=== PATIENT | male | born 1955 | race Caucasian/White ===

== ENCOUNTER 2022-01-30 04:17 | Emergency (ER) | payer OTHER ==
[~2022-01-30] VITALS: Ht 177.8 cm; Wt 113.4 kg
== END 2022-01-30 04:54 | disposition home or self-care (01) ==
LOC: ER 04:17
DX: S61.217A Laceration without foreign body of left little finger without damage to nail, initial encounter (principal); E11.9 Type 2 diabetes mellitus without complications; W27.8XXA Contact with other nonpowered hand tool, initial encounter

== ENCOUNTER 2024-02-11 20:58 | Observation (INO) | payer OTHER ==
[~2024-02-11] VITALS: Ht 177.8 cm; Wt 112.0 kg
[2024-02-11] MEDS ORDERED: Albuterol 2.5 MG/3 ML VIAL INH SCH (21:10)
[2024-02-11] MEDS ORDERED: Ipratropium Bromide INH 0.02% 0.5 mg/2.5ML Vial INH SCH (21:10)
[2024-02-11 21:29] LABS: BASOPHILS ABSOLUTE AUTO 0.04 K/mm3 (0.00-0.23); BASOPHILS PERCENT AUTO 0 % (0-2); EOSINOPHILS ABSOLUTE AUTO 0.04 K/mm3 (0.00-0.68); EOSINOPHILS PERCENT AUTO 0 % (0-6); Hematocrit 45.4 % (37.0-53.0); Hemoglobin 15.5 g/dL (13.5-17.5); IMMATURE GRAN ABSOLUTE AUTO 0.06 K/mm3 (0.00-0.10); IMMATURE GRAN PERCENT AUTO 1 % (0-1); LYMPHOCYTES ABSOLUTE AUTO 0.38 K/mm3 (0.84-5.20); LYMPHOCYTES PERCENT AUTO 3 % (21-46); MONOCYTES PERCENT AUTO 6 % (4-13); Mean Corpuscular HGB 28.2 pg (26.0-34.0); Mean Corpuscular HGB Conc 34.1 g/dL (31.5-36.5); Mean Corpuscular Volume 83 fL (80-100); Mean Platelet Volume 11.3 fL (9.1-12.4); NEUTROPHILS ABSOLUTE AUTO 10.67 K/mm3 (1.96-9.15); NEUTROPHILS PERCENT AUTO 90 % (41-73); Platelet Count 226 K/mm3 (150-400); RDW Coefficient Variation 12.3 % (11.7-14.2); RDW Standard Deviation 37.4 fL (35.1-46.3); White Blood Cell Count 11.89 K/mm3 (4.00-11.30)
[2024-02-11] MEDS ORDERED: Ketorolac Tromethamine 15mg Vial IV ONE (22:00)
[2024-02-11 22:02] LABS: Albumin, Blood 3.3 g/dL (3.4-5.0); Albumin/Globulin Ratio 0.8 (0.8-1.8); Bilirubin, Total 0.3 mg/dL (0.1-1.0); Bun/Creatinine Ratio 16.7 (12.0-20.0); Calcium, Blood 8.8 mg/dL (8.5-10.1); Creatinine, Blood 1.14 mg/dL (0.60-1.20); Phosphorus, Blood 1.6 mg/dL (2.5-4.9); Potassium, Blood 4.1 mmol/L (3.5-5.5); Thyroid Stimulating Hormone 0.834 uIU/mL (0.360-4.800); Total Protein, Blood 7.3 g/dL (6.4-8.2)
[2024-02-11 22:05] LABS: Influenza A, PCR NEGATIVE (NEGATIVE); Influenza B, PCR NEGATIVE (NEGATIVE); Resp Syncytial Virus, PCR NEGATIVE (NEGATIVE)
[2024-02-11 22:06] LABS: SARS-Cov-2 (COVID-19) PCR, MMC POSITIVE (NEGATIVE)
[2024-02-11 22:06] LABS: D-Dimer, Quantitative 0.79 mg/L FEU (0.00-0.52); International Normalized Ratio 1.01; Prothrombin Time Results 10.8 Sec (9.7-11.5)
[2024-02-11] MEDS ORDERED: NS 1,000 ML IV SCH (22:15)
[2024-02-11] MEDS ORDERED: Azithromycin 500 MG in NS 250 ML IV ONE (22:15)
[2024-02-11] MEDS ORDERED: CefTRIAXone Sodium 1,000 MG in NS 50 ML IV ONE (22:15)
[2024-02-11] MEDS ORDERED: Acetaminophen 325 MG TABLET PO PRN (23:45)
[2024-02-11] MEDS ORDERED: Nicotine 14 MG PATCH TOP PRN (23:45)
[2024-02-11] MEDS ORDERED: Remdesivir (EUA) 200 MG in NS 250 ML IV ONE (23:50)
[2024-02-12] MEDS ORDERED: NS 1,000 ML IV SCH ×2 (00:15→01:15)
[2024-02-12] MEDS ORDERED: INSULANI SC (01:00)
[2024-02-12 01:04] LABS: Source, Urine Clean Catch
[2024-02-12 01:06] LABS: Bilirubin, Urine Neg (Neg); Blood, Urine Neg (Neg); Glucose Qualitative, Urine 4+ (Neg); Ketones, Urine Neg (Neg); Leukocyte Esterase, Urine Neg (Neg); Nitrite, Urine Neg (Neg); Protein, Urine 1+ (Neg); Urobilinogen, Urine NORM (Normal)
[2024-02-12 01:10] LABS: BASOPHILS ABSOLUTE AUTO 0.05 K/mm3 (0.00-0.23); BASOPHILS PERCENT AUTO 0 % (0-2); EOSINOPHILS ABSOLUTE AUTO 0.01 K/mm3 (0.00-0.68); EOSINOPHILS PERCENT AUTO 0 % (0-6); Hematocrit 44.4 % (37.0-53.0); Hemoglobin 14.7 g/dL (13.5-17.5); IMMATURE GRAN ABSOLUTE AUTO 0.08 K/mm3 (0.00-0.10); IMMATURE GRAN PERCENT AUTO 1 % (0-1); LYMPHOCYTES ABSOLUTE AUTO 0.71 K/mm3 (0.84-5.20); LYMPHOCYTES PERCENT AUTO 5 % (21-46); MONOCYTES ABSOLUTE AUTO 0.67 K/mm3 (0.16-1.47); MONOCYTES PERCENT AUTO 5 % (4-13); Mean Corpuscular HGB 28.1 pg (26.0-34.0); Mean Corpuscular HGB Conc 33.1 g/dL (31.5-36.5); Mean Corpuscular Volume 85 fL (80-100); Mean Platelet Volume 10.6 fL (9.1-12.4); NEUTROPHILS ABSOLUTE AUTO 12.52 K/mm3 (1.96-9.15); NEUTROPHILS PERCENT AUTO 89 % (41-73); Platelet Count 203 K/mm3 (150-400); RDW Coefficient Variation 12.4 % (11.7-14.2); RDW Standard Deviation 38.1 fL (35.1-46.3); Red Blood Cell Count 5.23 M/mm3 (4.30-5.90); White Blood Cell Count 14.04 K/mm3 (4.00-11.30)
[2024-02-12 01:11] LABS: Appearance, Urine Clear (Clear); Color, Urine Yellow (P-Yellow)
[2024-02-12 01:12] VITALS: BP 124/63
[2024-02-12 01:20] LABS: U Amphetamine Screen DETECTED; U Barbituate Screen Not Detected; U Benzodiazapine Screen DETECTED; U Buprenorphine Screen Not Detected; U Cannabinoids Screen Not Detected; U Cocaine Screen Not Detected; U Methadone Screen Not Detected; U Methamphetamine Screen DETECTED; U Opiates Screen DETECTED; U Oxycodone Screen Not Detected; U Phencyclidine Screen Not Detected
[2024-02-12 01:29] LABS: Albumin, Blood 3.1 g/dL (3.4-5.0); Albumin/Globulin Ratio 0.8 (0.8-1.8); Bilirubin, Total 0.2 mg/dL (0.1-1.0); Calcium, Blood 8.4 mg/dL (8.5-10.1); Creatinine, Blood 1.36 mg/dL (0.60-1.20); Globulin, Blood 3.8 g/dL (2.2-4.0); Potassium, Blood 3.8 mmol/L (3.5-5.5); Total Protein, Blood 6.9 g/dL (6.4-8.2)
[2024-02-12] MEDS ORDERED: Ipratropium/Albuterol SulF 2.5-0.5MG/3 ML Amp INH SCH (01:55)
--- NOTE | 2024-02-12 02:00 | NUR ---
ARRIVAL PT NEW ADMIT FROM ER WITH SEPSIS SECONDARY TO COVID-19. PT ARRIVED VIA GOURNEY, IN NO DISTRESS, AND ON 5L VIA NC. VSS. IVF INFUSING PER EMAR ORDERS. REDDNESS NOTED IN SOME SKIN FOLDS, PICTURES IN CHART. NO OPEN AREAS NOTED. PT A/OX3-4, UNABLE TO RECALL WHAT MEDICATION HE TAKES. [facility]. DIFFUSE WEAKNESS NOTED, CONDOM CATH PLACED. TOLLERAING PO INTAKE W/O N/V. REPORTS CHRONIC L SHOULDER PAIN.
[2024-02-12] MEDS ORDERED: Potassium Phosphate Dibasic 30 MM in Dextrose 5% 500 ML IV ONE (05:00)
[2024-02-12 05:20] VITALS: BP 115/65
--- NOTE | 2024-02-12 05:46 | NUR ---
SHIFT SUMMARY VSS, TELE READS NSR 91. PT HAS SLEPT WELL T/O THE NIGHT SINCE ARRIVING TO THE UNIT. PT WAS PLACED ON AN OXYMASK T/O THE NIGHT WHILE SLEEPING DUE TO MOUTH BREATHING, PT IS ABLE TO USE A NC WHILE AWAKE. SATS REMAIN IN THE MID 90'S. IVF AND ABX INFUSING PER EMAR. PTS COUGH IS DEVELOPING INTO A WET COUGH, HOPEFUL TO COLLECT A SPUTUM SAMPLE TODAY. NAIRS MRSA SAMPLE SENT TO LAB. PT IS TOLLERATING PO INTAKE W/O N/V. AWAITING AM LAB RESULTS AT THIS TIME. THE PATIENT IS CURRENTLY RESTING, IN NO DISTRESS, CALL LIGHT IN REACH. BED ALARM ON FOR SAFETY
[2024-02-12] MEDS ORDERED: Insulin Human Lispro 100 Units/ML 3ML Syringe SC SCH (07:30)
[2024-02-12 08:14] VITALS: BP 130/67
[2024-02-12] MEDS ORDERED: Enoxaparin 40 MG/0.4 ML SYR SC SCH (09:00)
[2024-02-12] MEDS ORDERED: dexAMETHasone 4 MG TAB PO SCH (09:00)
[2024-02-12 11:08] VITALS: BP 130/59
[2024-02-12] MEDS ORDERED: Neurontin400 MG PO (11:46)
[2024-02-12] MEDS ORDERED: ABILIFY MYCITE PO (11:47)
[2024-02-12] MEDS ORDERED: MELA3 PO (11:47)
[2024-02-12] MEDS ORDERED: ACET500 PO (11:48)
[2024-02-12] MEDS ORDERED: CENTRUM SILVER1 EAC2 PO (11:48)
[2024-02-12] MEDS ORDERED: ATOR40TA PO (11:49)
[2024-02-12] MEDS ORDERED: DULOXETINE HCL60 M1 PO (11:49)
[2024-02-12] MEDS ORDERED: TADALAFIL20 M1 PO (11:50)
[2024-02-12] MEDS ORDERED: ASPI81CH PO (11:51)
[2024-02-12] MEDS ORDERED: Klonopin0.5 MG PO (11:52)
[2024-02-12] MEDS ORDERED: NORVASC5 MG PO (11:53)
[2024-02-12] MEDS ORDERED: HYDHCL25 PO (11:53)
[2024-02-12] MEDS ORDERED: JARDIANCE25 MG PO (11:54)
--- NOTE | 2024-02-12 12:21 | NUR ---
THE PT IS WANTING TO GO AMA. HE STATES HE HAS TO TAKE CARE OF HIS CATS, AND HE DOES NOT WANT TO BE HERE ANY LONGER. HE WAS EDUCATED ON THE RISKS OF LEAVING AGAINST MEDICAL ADVICE, AND HE REPLIED "I DONT CARE. I AM GOING HOME". DR. QUINONES AWARE; THE PT HAS BROUGHT IT UP MULTIPLE TIMES TODAY. I PULLED OUT HIS IV'S, AND TOOK OFF HIS TELE BOX. THE PT IS CALLING HIS TO PICK HIM UP NOW. MORNING SUMMARY THE PT HAD A HOME O2 EVALUATION THIS MORNING AND HE DOES NOT REQUIRE ANY OXYGEN. HIS VITAL SIGNS ARE STABLE. THE PT REMAINS A&OX4, BUT HAS BEEN IRRITABLE AND DEFENSIVE THIS SHIFT. HE IS NOT RECEPTIVE TO EDUCATION AND HAS HIS MIND SET ON GOING HOME. WE ARE STILL PENDING MULTIPLE LABS/CULTURES. THE PT HAS HAD MULTIPLE INC/CONT BOWEL MOVEMENTS THIS SHIFT. HE HAS BEEN USING THE URINAL AT BEDSIDE. NO ACUTE EVENTS. PT WILL BE LEAVING AMA, AND IS WAITING FOR HIS TO PICK HIM UP.
--- NOTE | 2024-02-12 12:41 | NUR ---
THE PT LEFT AMA AT 1234. HIS DIVER TENDER WAS RETURNED WHEN HE EXITED THE BUILDING.
[2024-02-12] MEDS ORDERED: CefTRIAXone Sodium 1,000 MG in NS 100 ML IV SCH (15:00)
[2024-02-12] MEDS ORDERED: Insulin Glargine-Yfgn 100 Unit/mL 3 ML SYR SC SCH ×2 (21:00)
[2024-02-12] MEDS ORDERED: Remdesivir (EUA) 100 MG in NS 250 ML IV SCH (21:00)
[2024-02-13] MEDS ORDERED: Azithromycin 250 MG Tab PO SCH (09:00)
== END 2024-02-12 12:39 | disposition left against medical advice (07) ==
LOC: ER 20:58 → PCU 20:59
PROVIDERS: Emergency Medicine; Student in an Organized Health Care Education/Training Program; ADMIT Student in an Organized Health Care Education/Training Program
DX: J96.01 Acute respiratory failure with hypoxia (principal); J44.9 Chronic obstructive pulmonary disease, unspecified; A41.9 Sepsis, unspecified organism; U07.1 COVID-19; E87.21 Acute metabolic acidosis; E11.9 Type 2 diabetes mellitus without complications; J18.9 Pneumonia, unspecified organism; F17.210 Nicotine dependence, cigarettes, uncomplicated; Z88.8 Allergy status to other drugs, medicaments and biological substances; Z53.29 Procedure and treatment not carried out because of patient's decision for other reasons
CPT/HCPCS: 0241U; 36415; 71045; 71260; 80053; 82550; 82947; 83605; 83735; 84100; 84145; 84443; 84484; 85025; 85379; 85610; 85730; 87040; 87070; 87077; 87205; 93005; 93010; 94640; 94644; 94664; 94760; 94761; 94762; 96361; 96372; 96374-59; 96375; 96375-59; 99285-25; A9270; G0378; J0248; J0456; J0696; J1650; J1815; J1885; J7030; J7050; J7060; Q9967

== ENCOUNTER 2024-07-06 01:12 | Emergency (ER) | payer OTHER ==
[~2024-07-06] VITALS: Ht 177.8 cm; Wt 108.9 kg
[~2024-07-06 01:12] MED LIST: ABILIFY MYCITE PO; ACET500 PO; ASPI81CH PO; ATOR40TA PO; CENTRUM SILVER1 EAC2 PO; DULOXETINE HCL60 M1 PO; HYDHCL25 PO; INSULANI SC; JARDIANCE25 MG PO; Klonopin0.5 MG PO; MELA3 PO; NORVASC5 MG PO; Neurontin400 MG PO; TADALAFIL20 M1 PO
[2024-07-06 01:32] VITALS: BP 144/83
[2024-07-06] MEDS ORDERED: SULTRIDS PO (03:37)
[2024-07-09] MEDS ORDERED: SULTRIDS PO (11:16)
== END 2024-07-06 03:45 | disposition home or self-care (01) ==
LOC: ER 01:12
DX: L03.032 Cellulitis of left toe (principal); E11.622 Type 2 diabetes mellitus with other skin ulcer; L97.529 Non-pressure chronic ulcer of other part of left foot with unspecified severity; J44.9 Chronic obstructive pulmonary disease, unspecified; I25.2 Old myocardial infarction; F17.200 Nicotine dependence, unspecified, uncomplicated; Z88.8 Allergy status to other drugs, medicaments and biological substances; Z79.4 Long term (current) use of insulin; Z79.899 Other long term (current) drug therapy; Z79.82 Long term (current) use of aspirin
CPT/HCPCS: 73660; 99283-25

== ENCOUNTER 2024-12-03 17:53 | Emergency (ER) | payer OTHER ==
[~2024-12-03] VITALS: Ht 177.8 cm; Wt 113.4 kg
[~2024-12-03 17:53] MED LIST changes: +SULTRIDS PO
[2024-12-03 18:12] VITALS: BP 117/68
[2024-12-03] MEDS ORDERED: OZEMPIC1 MG/0.72 (18:44)
[2024-12-03] MEDS ORDERED: Cephalexin Monohydrate 500 MG Cap PO ONE (19:10)
[2024-12-03] MEDS ORDERED: Acetaminophen 325 MG TABLET PO ONE (19:10)
[2024-12-03] MEDS ORDERED: CEPH500 PO (19:11)
== END 2024-12-03 19:35 | disposition home or self-care (01) ==
LOC: ER 17:53
DX: L03.114 Cellulitis of left upper limb (principal); J44.9 Chronic obstructive pulmonary disease, unspecified; E11.9 Type 2 diabetes mellitus without complications; I25.2 Old myocardial infarction; E78.00 Pure hypercholesterolemia, unspecified; F17.200 Nicotine dependence, unspecified, uncomplicated; Z79.4 Long term (current) use of insulin; Z79.82 Long term (current) use of aspirin; Z79.899 Other long term (current) drug therapy; Z88.8 Allergy status to other drugs, medicaments and biological substances
CPT/HCPCS: 73080; 99283-25; A9270

== ENCOUNTER 2025-01-30 11:57 | Inpatient (IN) | payer OTHER, MEDICARE ==
[2025-01-30] VITALS (8 sets, daily range): BP systolic 106–126; BP diastolic 61–80
[~2025-01-30] VITALS: Ht 177.8 cm; Wt 104.4 kg
[~2025-01-30 11:57] MED LIST changes: +CEPH500 PO; +OZEMPIC1 MG/0.72
[2025-01-30 12:43] LABS: pH Blood Venous 7.33 (7.34-7.37)
[2025-01-30 12:52] LABS: Hematocrit 38.8 % (37.0-53.0); Hemoglobin 12.8 g/dL (13.5-17.5); Mean Corpuscular HGB Conc 33.0 g/dL (31.5-36.5); Mean Corpuscular Volume 84 fL (80-100); NRBC ABSOLUTE 0.00 K/mm3 (0.00-0.02); NRBC Auto 0.0 /100 WBC (0.0-0.2); Platelet Count 217 K/mm3 (150-400); RDW Coefficient Variation 13.4 % (11.7-14.2); RDW Standard Deviation 41.4 fL (35.1-46.3)
[2025-01-30 13:13] LABS: BAND PERCENT MAN 35 % (0-8); BASOPHILS ABSOLUTE MAN 0.00 K/mm3 (0.00-0.23); BASOPHILS PERCENT MAN 0 % (0-2); EOSINOPHILS ABSOLUTE MAN 0.00 K/mm3 (0.00-0.68); EOSINOPHILS PERCENT MAN 0 % (0-6); LYMPHOCYTES ABSOLUTE MAN 0.24 K/mm3 (0.84-5.20); LYMPHOCYTES PERCENT MAN 3 % (21-46); METAMYELOCYTE ABSOLUTE MAN 1.22 K/mm3 (0.00-0.00); METAMYELOCYTE PERCENT MAN 15 % (0-0); MONOCYTES ABSOLUTE MAN 0.48 K/mm3 (0.16-1.47); MONOCYTES PERCENT MAN 6 % (4-13); MYELOCYTE ABSOLUTE MAN 0.24 K/mm3 (0.00-0.00); MYELOCYTE PERCENT MAN 3 % (0-0); NEUTROPHILS ABSOLUTE MAN 5.94 K/mm3 (1.96-9.15); SEG NEUTROPHILS PERCENT MAN 38 % (41-73)
[2025-01-30 13:23] LABS: Ethanol (Alcohol), Blood, Med <3 mg/dL
[2025-01-30 13:28] LABS: Alanine Aminotransfer (ALT/SGP 26 U/L (12-78); Albumin, Blood 2.7 g/dL (3.4-5.0); Albumin/Globulin Ratio 0.6 (0.8-1.8); Anion Gap 14 mmol/L (3-11); Aspartate Aminotrans (AST/SGOT 21 U/L (12-37); Bilirubin, Total 0.8 mg/dL (0.1-1.0); Blood Urea Nitrogen 42 mg/dL (8-24); CO2, Blood 21 mmol/L (21-32); Calcium, Blood 8.7 mg/dL (8.5-10.1); Chloride, Blood 101 mmol/L (98-108); Creatinine, Blood 1.97 mg/dL (0.60-1.20); Globulin, Blood 4.4 g/dL (2.2-4.0); Glucose, Blood 242 mg/dL (70-99); Potassium, Blood 5.2 mmol/L (3.5-5.5); Sodium, Blood 131 mmol/L (136-145); Thyroid Stimulating Hormone 6.120 uIU/mL (0.360-4.800); Total Protein, Blood 7.1 g/dL (6.4-8.2)
[2025-01-30] MEDS ORDERED: CefTRIAXone Sodium 1,000 MG in NS 100 ML IV ONE (14:15)
[2025-01-30] MEDS ORDERED: Doxycycline Hyclate 100 MG in Dextrose 5% 250 ML IV ONE (14:15)
[2025-01-30] MEDS ORDERED: Midazolam HCl 1MG / ML 2ML Vial IV ONE ×2 (14:35→15:40)
[2025-01-30] MEDS ORDERED: NS 1,000 ML IV SCH ×2 (16:00→17:00)
[2025-01-30] MEDS ORDERED: Insulin Human Lispro 100 Units/ML 3ML Syringe SC SCH (16:30)
[2025-01-30] MEDS ORDERED: Haloperidol Lactate Inj. 5 MG/ML Injection IV ONE ×2 (18:15→18:40)
[2025-01-30 18:40] LABS: pH Blood Arterial 7.39 (7.35-7.45)
[2025-01-30] MEDS ORDERED: Ipratropium/Albuterol SulF 2.5-0.5MG/3 ML Amp INH SCH (18:45)
[2025-01-30] MEDS ORDERED: Albuterol 2.5 MG/3 ML VIAL INH PRN (18:45)
[2025-01-30 19:08] LABS: Source, Urine Clean Catch
[2025-01-30 19:16] LABS: Bilirubin, Urine Neg (Neg); Color, Urine Yellow (P-Yellow); Glucose Qualitative, Urine 4+ (Neg); Ketones, Urine 1+ (Neg); Leukocyte Esterase, Urine Neg (Neg); Protein, Urine 2+ (Neg); Specific Gravity, Urine 1.020 (1.003-1.022); Urobilinogen, Urine NORM (Normal)
[2025-01-30 19:39] LABS: Red Blood Cells, Urine 0-2 /hpf (0-2); White Blood Cells, Urine 0-2 /hpf (0-5)
[2025-01-30 19:50] LABS: U Amphetamine Screen DETECTED; U Barbituate Screen Not Detected; U Benzodiazapine Screen Not Detected; U Buprenorphine Screen Not Detected; U Cannabinoids Screen DETECTED; U Cocaine Screen Not Detected; U Methadone Screen Not Detected; U Methamphetamine Screen DETECTED; U Opiates Screen DETECTED; U Oxycodone Screen Not Detected; U Phencyclidine Screen Not Detected
[2025-01-30] MEDS ORDERED: Haloperidol Lactate Inj. 5 MG/ML Injection IV PRN (20:20)
[2025-01-30] MEDS ORDERED: Diazepam 5 MG / ML 2ML SYR IV PRN (20:20)
[2025-01-30] MEDS ORDERED: Haloperidol Lactate Inj. 5 MG/ML Injection ONE (20:22)
[2025-01-30] MEDS ORDERED: DiphenhydrAMINE HCl 50 MG/ML 1ML Vial ONE (20:23)
[2025-01-30] MEDS ORDERED: Diazepam 5 MG / ML 2ML SYR ONE (20:23)
[2025-01-30] MEDS ORDERED: Insulin Glargine-Yfgn 100 Unit/mL 3 ML SYR SC SCH (21:00)
[2025-01-30] MEDS ORDERED: Heparin Sodium,Porcine 5,000 UNIT/0.5 ML SDV SC SCH (21:00)
[2025-01-30] MEDS ORDERED: DiphenhydrAMINE HCl 50 MG/ML 1ML Vial IV ONE (21:00)
[2025-01-30 21:35] LABS: pH Blood Venous 7.41 (7.34-7.37)
[2025-01-30] MEDS ORDERED: Doxycycline Hyclate 100 MG in Dextrose 5% 250 ML IV SCH (22:00)
--- NOTE | 2025-01-30 22:39 | NUR ---
ADMIT AND THEN TRANSFER TO ICU PT ARRIVED TO PCU09 AT 2039. PT ARRIVED ON 15L NON REBREATHER AND WAS QUITE AGITATED, PULLING AT MASK AND LINES WHILE BEING TRANSFERRED TO NEW BED. O2 SATS 89-92% ON ARRIVAL. LUNG SOUNDS VERY WET WITH SIGNIFICANT WORK OF BREATHING. SOME EXP WHEEZES NOTED WELL. RT RIN INTO ROOM FOR INITAL ASSESSMENT AND EXPRESSED CONCERNS R/T HOW LONG PT COULD MAINTAIN RESPIRATORY STATUS WITHOUT BIPAP OR OTHER MEASURES. GROUNDMAN/LINEMAN SPOKE WITH DR AND ICU CHARGE TO DISCUSS TRANSFER TO ICU. ICU GROUNDMAN/LINEMAN AND RESIDENT IN TO ASSESS PT AND DETERMINED PT NEEDED ICU TRANSFER WITH BIPAP AND SEDATION AT THIS TIME. PT ARRIVED TO UNIT FROM ED IN BILATERAL SOFT WRIST RESTRAINTS AND HAD RECIEVED IV HALDOL, VALIUM, AND BENADRYL IN ED JUST PRIOR TO COMING TO PCU BUT WAS STILL VERY AGITATED. PT TRANSFERED TO ICU09 BY BREAK RN AND RT. PT REPORT GIVEN TO STRIP CLEANERDARIANA.
[2025-01-31] VITALS (87 sets, daily range): BP systolic 109–158; BP diastolic 62–121
[2025-01-31 03:54] LABS: Anion Gap 12.0 mmol/L (3-11); Blood Urea Nitrogen 48.0 mg/dL (8-24); CO2, Blood 22.0 mmol/L (21-32); Calcium, Blood 9.1 mg/dL (8.5-10.1); Chloride, Blood 102.0 mmol/L (98-108); Creatinine, Blood 1.72 mg/dL (0.60-1.20); Glucose, Blood 355.0 mg/dL (70-99); Potassium, Blood 5.2 mmol/L (3.5-5.5); Sodium, Blood 131.0 mmol/L (136-145)
--- NOTE | 2025-01-31 06:31 | NUR ---
SHIFT SUMMARY PT HAS TOLERATED SHIFT SINCE TRANSFER FROM PCU WITH NO SIGNIFICANT EVENTS OVERNIGHT. PT ARRIVED CALM AND COOPERATIVE BUT QUICKLY BECAME AGITATED AND WAS STARTED ON PRECEDEX. PT TOLERATES BIPAP FOR BREIF PERIOD OF TIME BEFORE PRECEDEX IS STARTED. PT IS ALERT TO SELF ONLY. PT VITALS HAVE IMPROVED SINCE TRANSFER AND INITIATION OF BIPAP. PT CURRENTLY RESTING AND APPEARS COMFORTABLE IN ROOM AT THIS TIME. WILL CONTINUE TO MONITOR UNTIL REPORT PASSED TO DAY SHIFT TEAM.
[2025-01-31] MEDS ORDERED: Insulin Glargine-Yfgn 100 Unit/mL 3 ML SYR SC SCH (08:00)
--- NOTE | 2025-01-31 08:59 | NUR ---
ASSUMPTION OF CARE ASSUMED CARE OF PATIENT AT APPROXIMATELY 0700. PT RESTING IN BED, AROUSABLE TO VERBAL STIMULI. PRECEDEX INFUSING AT 1.5MCG/KG/HR. PT PLEASANT ON ASSESSMENT, ABLE TO STATE NAME, AND LOCATION, UNSURE OF YEAR. PT FOLLOWS DIRECTON WHEN PROMPTED, ASSISTS WITH TURNS. PT MOVES EXTREMITIES EQUALLY BILATERALLY. PT BECAME AGGITATED, YELLING AND CUSSING WHEN INFORMED THAT THE BIPAP MASK NEEDED TO BE REPLACED. HR 80'S SINUS WITH PVC'S. PT ON BIPAP 14/7 40%, OXYGEN SATURATION >95%. LUNG SOUNDS COARSE. BIPAP REMOVED FOR ORAL CARE, PLACED ON 4LPM VIA NC, WHILE ON NC PT OXYGEN SATURATION REMAINED AROUND 93%. BIPAP REPLACED AFTER ORAL CARE COMPLETED. RENEE IN PLACE PATENT DRAINING YELLOW URINE TO GRAVITY. PIV IN PLACE TO RIGHT HAND AND LAC. BED IN LOWEST POSITION, CARE CONTINUES.
--- NOTE | 2025-01-31 12:24 | NUR ---
PT UPDATE CALL PLACED TO REGARDING PT INCREASING BLOOD SUGARS. ORDERS RECEIVED. CARE CONTINUES.
--- NOTE | 2025-01-31 12:58 | NUR ---
PT UPDATE PT HAVING ECTOPY ON FITTER'S ASSISTANT. CALL PLACED TO DR. HUTCHINSON TO INFORM HIM OF THIS, ORDERS RECEIVED, CARE CONTINUES.
[2025-01-31] MEDS ORDERED: Insulin Human Lispro 100 Units/ML 3ML Syringe SC SCH ×2 (13:00→18:00)
--- NOTE | 2025-01-31 13:50 | NUR ---
PT UPDATE PT HAS BEEN IN SUSTAINED VENTRICULAR BIGEMINY. BLOOD PRESSURE STABLE, OXYEGN SATURATION >95% ON BIPAP 14/7 40%. EKG OBTAINED, DR HUTCHINSON NOTIFIED, NO NEW ORDERS AT THIS TIME, CARE CONTINUES.
[2025-01-31 14:21] LABS: pH Blood Venous 7.36 (7.34-7.37)
[2025-01-31] MEDS ORDERED: Insulin Glargine-Yfgn 100 Unit/mL 3 ML SYR SC ONE (17:10)
--- NOTE | 2025-01-31 17:38 | NUR ---
SHIFT SUMMARY PT CONTINUES TO REST IN BED, SLEEPING BUT AROUSABLE. PRECEDEX INFUSING AT 1.5MCG/KG/HR. PT ABLE TO STATE NAME, AND PLACE. PT RECOGNIZES AND COMMUNICATES WITH . PT IS VERBALLY AGGRESSIVE, YELLING AND CUSSING, STATES THIS IS NOT NORMAL FOR THE PATIENT. PT FOLLOWS DIRECTION WHEN PROMPTED, MOVES EXTREMITIES EQUALLY BILTERALLY, ABLE TO MAKE HIS NEEDS KNOWN. HR 60-80'S SINUS WITH FREQUENT PVC'S, PT HAS BEEN IN VENTRICULAR BIGEMINY ON AND OFF THIS SHIFT, PROVIDER AWARE, EKG COMPLETED. MAP >65. PT ALTERNATING BETWEEN BIPAP AT 14/7 40% AND 4 LPM VIA NC, OXYGEN SATURATION >92%. LUNG SOUNDS COARSE, AUDIBLE WET RESPIRATIONS HEARD FROM DOOR, PT WITH STRONG COUGH BUT NON PRODUCTIVE. CATHETER IN PLACE DRAINING YELLOW URINE TO GRAVITY. PIV IN PLACE TO RIGHT HAND AND LAC. BED IN LOWEST POSIITON, CLINICAL SITTER AT THE BEDSIDE. CARE CONTINUES.
--- NOTE | 2025-01-31 17:38 | NUR ---
PT UPDATE PT BLOOD SUGAR CONTINUES TO BE HIGH, CALL PLACED TO DR. HUTCHINSON REGARDING THIS, ORDERS RECEIVED. CARE CONTINUES.
[2025-01-31] MEDS ORDERED: CefTRIAXone Sodium 1,000 MG in NS 100 ML IV SCH (18:00)
--- NOTE | 2025-01-31 19:14 | NUR ---
ASSUMPTION OF CARE REPORT RECIEVED FROM DAY SHIFT NURSE. PT APPEARS TO BE RESTING COMFORTABLY IN ROOM AT THIS TIME. CALL LIGHT IN REACH. SITTER AT BEDSIDE.
[2025-02-01] VITALS (83 sets, daily range): BP systolic 119–158; BP diastolic 54–144
[2025-02-01 04:17] LABS: Hematocrit 36.7 % (37.0-53.0); Hemoglobin 12.5 g/dL (13.5-17.5); Mean Corpuscular HGB Conc 34.1 g/dL (31.5-36.5); Mean Corpuscular Volume 81 fL (80-100); NRBC ABSOLUTE 0.00 K/mm3 (0.00-0.02); NRBC Auto 0.0 /100 WBC (0.0-0.2); Platelet Count 232 K/mm3 (150-400); RDW Coefficient Variation 13.1 % (11.7-14.2); RDW Standard Deviation 38.6 fL (35.1-46.3)
[2025-02-01 04:40] LABS: Anion Gap 12.0 mmol/L (3-11); Blood Urea Nitrogen 56.0 mg/dL (8-24); CO2, Blood 21.0 mmol/L (21-32); Calcium, Blood 9.1 mg/dL (8.5-10.1); Chloride, Blood 104.0 mmol/L (98-108); Creatinine, Blood 1.26 mg/dL (0.60-1.20); Glucose, Blood 334.0 mg/dL (70-99); Potassium, Blood 4.4 mmol/L (3.5-5.5); Sodium, Blood 133.0 mmol/L (136-145)
--- NOTE | 2025-02-01 05:59 | NUR ---
SHIFT SUMMARY PT HAS TOLERATED SHIFT WITH NO SIGNIFICANT EVENTS OR STATUS CHANGES OVERNIGHT. PT HAS BEEN ABLE TO SLEEP FOR MOST OF NIGHT, WAKING AT TIMES WITH HALLUCINATIONS. PT HAS BEEN GIVEN PRN MEDICATIONS TO HELP WITH ANXIETY AND AGITATION. PT IS CURRENTLY SITTING UP IN BED EATING AND IS APPROPRIATE. PT WILL SOMETIMES BECOME AGITATED AND VERBALLY AGRESSIVE WITHOUT WARNING. PT IS CURRENTLY PLEASENT. WILL CONTINUE TO MONITOR UNTIL REPORT PASSED TO DAY SHIFT TEAM.
[2025-02-01] MEDS ORDERED: Insulin Glargine-Yfgn 100 Unit/mL 3 ML SYR SC SCH (09:00)
--- NOTE | 2025-02-01 09:07 | NUR ---
ASSUMPTION OF CARE ASSUMED CARE OF PATIENT AT APPROXIMATELY 0700. PT RESTING IN BED, PRECEDEX INFUSING AT 1.2MCG/KG/HR AT START OF SHIFT, SEE FLOWSHEET FOR TITRATIONS. PT AWAKE, ABLE TO STATE NAME, AND THAT HE IS IN [place], PT UNSURE OF YEAR. PT VERBALLY AGGRESSIVE, YELLING AND CUSSING. PT FOLLOWS DIRECTION WHEN PROMPTED, MOVES EXTREMITIES EQUALLY BILATERALLY. HR 60-70'S SINUS WITH FREQUENT PVC'S, MAP >65. PT ON 4LPM VIA NC ON ASSESSMENT, OXYGEN SATURATION >94%. ABDOMEN SOFT, BOWEL TONES ACTIVE THROUGHOUT, PT TOLERATING PO INTAKE. PT DENIES N/V. RENEE IN PLACE PATENT DRAINING YELLOW URINE TO GRAVITY. PIV IN PLACE TO RIGHT HAND SL, PIV IN PLACE TO LAC INFUSING. BED IN LOWEST POSITION, CARE CONTINUES.
--- NOTE | 2025-02-01 15:21 | NUR ---
PT BELONGINGS PTS RING REMOVED, PLACED IN SPECIMEN CUP WITH PT LABEL.
[2025-02-01] MEDS ORDERED: Insulin Glargine-Yfgn 100 Unit/mL 3 ML SYR SC ONE (17:15)
--- NOTE | 2025-02-01 17:35 | NUR ---
SHIFT SUMMARY PT RESTING IN RECLINER. ALERT ORIENTED TO SELF AND PLACE. PRECEDEX HAS BEEN ON SB SINCE AROUND 1300. PT HAS BEEN PLEASANT THIS AFTERNOON AND COOPERATIVE WITH CARE, PT FOLLOWS DIRECTION WHEN PROMPTED AND IS ABLE TO MAKE HIS NEEDS KNOWN. PT MOVES EXTREMITIES EQUALLY BILATERALLY. HR 80-100'S SINUS WITH FREQUENT PVC'S, MAP >65. PT HAS BEEN ON 4LPM VIA NC THIS SHIFT, OXYGEN SATURATION >94%. ABDOMEN SOFT, BOWEL TONES ACTIVE THROHGOUT, PT TOLERATING PO INTAKE. RENEE IN PLACE PATENT DRAINING YELLOW URINE TO GRAVITY. PIV IN PLACE TO RAC AND LAC. CALL LIGHT WITHIN REACH, CARE CONTINUES.
[2025-02-01] MEDS ORDERED: Polyethylene Glycol 3350 17 gm PO SCH (18:20)
[2025-02-02] VITALS (68 sets, daily range): BP systolic 117–177; BP diastolic 58–106
[2025-02-02 02:03] LABS: Anion Gap 10.0 mmol/L (3-11); Blood Urea Nitrogen 53.0 mg/dL (8-24); CO2, Blood 25.0 mmol/L (21-32); Calcium, Blood 9.6 mg/dL (8.5-10.1); Chloride, Blood 100.0 mmol/L (98-108); Creatinine, Blood 1.2 mg/dL (0.60-1.20); Glucose, Blood 285.0 mg/dL (70-99); Magnesium, Blood 2.5 mg/dL (1.6-2.4); Phosphorus, Blood 2.6 mg/dL (2.5-4.9); Potassium, Blood 4.3 mmol/L (3.5-5.5); Sodium, Blood 131.0 mmol/L (136-145)
[2025-02-02] MEDS ORDERED: ALBU90OI INH (02:41)
[2025-02-02] MEDS ORDERED: LIDO700A20 TOP (02:49)
[2025-02-02] MEDS ORDERED: LISI20 PO (02:50)
[2025-02-02] MEDS ORDERED: ZIPR80 PO (02:53)
--- NOTE | 2025-02-02 05:59 | NUR ---
SHIFT SUMMARY: PT REMAINS A&OX3, REQUIRES RE-ORIENTING TO TIME INTERMITTENTLY. PT REMAINS OFF OF PRECEDEX T/O THE NIGHT. PT IS COOPERATIVE W/CARE AND COMMUNICATES APPROPRIATELY W/STAFF. PT CAN MAKE NEEDS KNOWN AND FOLLOWS COMMANDS. PT SBP NOTED TO RANGE FROM 130S-160S T/O THE NIGHT. HR 90S-LOW 100S. HR SINUS TACH W/MULTIPLE PVCS NOTED. AROUND 0400, PT STARTED TO C/O OF HEADACHE, SLIGHT NAUSEA, AND WAS VISIBLY SWEATY. DR SARMIENTO WAS NOTIFIED. ORDERS OBTAINED FOR LABS AND EKG, SEE RECORD. PT DENIED ANY SOB OR CHEST PAIN DURING THIS TIME. AFEBRILE T/O NIGHT. SXS RESOLVED. PT CONTINUES TO HAVE PVCS BUT NOW DENIES NAUSEA, SOB, CHEST PAIN, OR A HEADACHE AT THIS TIME. MAPS REMAIN>65 T/O SHIFT. PT ON RA W/ SATS >90%. ABD SOFT, MILDLY DISTENDED, BT ACTIVE X4. RENEE REMAINS IN PLACE, PATENT, DRAINING TO GRAVITY. PIV IN PLACE TO RAC AND LAC. CALL LIGHT WITHIN REACH. THIS RN TO CONTINUE TO MONITOR AND REPORT TO ONCOMING SHIFT.
[2025-02-02] MEDS ORDERED: Insulin Glargine-Yfgn 100 Unit/mL 3 ML SYR SC SCH (09:00)
[2025-02-02] MEDS ORDERED: Furosemide 10 MG / ML 2ML Vial IV SCH (09:00)
--- NOTE | 2025-02-02 09:03 | NUR ---
SHIFT ASSESSMENT ASSUMED CARE OF PT @ 0700, BEDSIDE REPORT RECEIVED FROM [facility] NURSE. PT RESTING COMFORTABLY IN BED, AWAKENS TO VERBAL STIMULI. PT A&OX4, CALM AND COOPERATIVE WITH CARE. PT ADMITS TO BEING VERY WEAK, UNABLE TO ASSIST WITH TURNS. PHYSICAL THERAPY CONSULT IN PLACE, PT WILLING TO WORK WITH PHYSICAL THERAPY, STATES "WHATEVER CAN GET ME HOME". PT TOLERATING FLUIDS & FOOD. C/O NO BM FOR UNKNOWN AMNT OF TIME, BOWEL CARE MEDS GIVEN. RENEE CATH PATENT, DRAINING YELLOW URINE. CALL LIGHT IN REACH
[2025-02-02] MEDS ORDERED: Enoxaparin 40 MG/0.4 ML SYR SC SCH (14:00)
--- NOTE | 2025-02-02 17:54 | NUR ---
SHIFT SUMMARY PT NOW PCU STATUS. PT A&OX4, CALM AND COOPERATIVE. UP TO BEDSIDE CHAIR AND COMMODE TODAY c WALKER AND GAIT BELT. WORKED WITH PHYSICAL THERAPY. TOLERATED CHAIR FOR A BRIEF TIME BUT C/O PAIN TO BACK WHILE IN CHAIR. PT INSISTED ON GOING BACK TO BED. PT TOLERATING SMALL AMOUNTS OF FOOD. PT HAD MULTIPLE LARGE LOOSE BM'S TODAY. RENEE CATH REMAINS PATENT, DRAINING YELLOW URINE. CALL LIGHT IN REACH.
[2025-02-03] VITALS (36 sets, daily range): BP systolic 102–160; BP diastolic 60–106
[2025-02-03 03:54] LABS: Hematocrit 43.5 % (37.0-53.0); Hemoglobin 15.1 g/dL (13.5-17.5); Mean Corpuscular HGB Conc 34.7 g/dL (31.5-36.5); Mean Corpuscular Volume 82 fL (80-100); NRBC ABSOLUTE 0.00 K/mm3 (0.00-0.02); NRBC Auto 0.0 /100 WBC (0.0-0.2); Platelet Count 274 K/mm3 (150-400); RDW Coefficient Variation 13.8 % (11.7-14.2); RDW Standard Deviation 40.5 fL (35.1-46.3)
[2025-02-03 04:14] LABS: Anion Gap 10.0 mmol/L (3-11); Blood Urea Nitrogen 42.0 mg/dL (8-24); CO2, Blood 24.0 mmol/L (21-32); Calcium, Blood 9.1 mg/dL (8.5-10.1); Chloride, Blood 103.0 mmol/L (98-108); Creatinine, Blood 1.07 mg/dL (0.60-1.20); Glucose, Blood 168.0 mg/dL (70-99); Potassium, Blood 4.1 mmol/L (3.5-5.5); Sodium, Blood 133.0 mmol/L (136-145)
--- NOTE | 2025-02-03 05:52 | NUR ---
SHIFT SUMMARY: PT REMAINS PLEASANT AND COOPERATIVE W/CARE. HE IS A&OX4, FOLLOWS COMMANDS AND ABLE TO MAKE NEEDS KNOWN. PT REMAINS PCU STATUS. AFEBRILE T/O SHIFT. PT CURRENTLY RESTING IN BED, AROUSES TO VERBAL STIMULI. SLEPT WELL T/O THE NIGHT. SBP STABLE 130S-160S. HR 90-100S. CONTINUES TO HAVE FREQUENT PVCS, REMAINS ASYMPTOMATIC. DENIED SOB/CHEST PAIN. PT REMAINS ON RA. SATS>90%. PT ABD SOFT TO PALPATION, BT ACTIVE X4. DENIED NAUSEA. RENEE CATHETER REMOVED THIS MORNING, PT TOLERATED WELL. EDUCATION PROVIDED ON THE USE OF A URINAL. ADVISED TO CALL FOR HELP IF NEEDED. CALL LIGHT IN REACH.
[2025-02-03] MEDS ORDERED: Morphine Sulfate 4 MG/1 ML Injection IV ONE (10:25)
[2025-02-03] MEDS ORDERED: Mag Hydrox/Al Hydrox/Simeth 18 ML,Lidocaine 2% Viscous Soln 9 ML,Atropine/Scopalam/Hyos... PO ONE (10:25)
[2025-02-03] MEDS ORDERED: Ketorolac Tromethamine 30mg Vial IV ONE (15:00)
--- NOTE | 2025-02-03 16:45 | NUR ---
Pt. is awake in bed and welcomes my visit. Pt. is pleasant. Facilitated a lengthy life review and listened with interest an a calming presence. Pt. speaks of a personal felicia and displays evidence of meaning in his life. Pt. verbalized of serving in the [employer]. Pt. shared details of regret in his life. Listen with pastoral care and compassion. Pt. displayed evidence of trust. Prayed for the Pt. Pt. verbalized gratitude for the spiritual are visit and welcomed this heel molder to return.
--- NOTE | 2025-02-03 18:03 | NUR ---
SHIFT SUMMARY PT REMAINS A&OX4, FOLLOWING COMMANDS. UP TO BEDSIDE CHAIR WITH SBA & WALKER. MUCH STRONGER TODAY. PT C/O MODERATE PAIN TO HIS RIB TODAY, PAIN WORSENS WITH PALPATION, PAIN DOES NOT RADIATE & NO OTHER SYMPTOMS. PHYSICIAN NOTIFIED, TROPONIN ZULLY-CORRINE & PT MEDICATED WITH MORPHINE AND TORADOL WITH ADEQUATE RELIEF. PT TOLERATING PO INTAKE. USING URINAL. 1 LARGE LOOSE BM TODAY. WORKED WITH PHYSICAL THERAPY. NO OTHER ACUTE CHANGES.
--- NOTE | 2025-02-03 19:20 | NUR ---
ASSUMPTION OF CARE: PT IN ROOM RESTING COMFORTABLY, REPORTS NO NEEDS AT THIS TIME. PT REMAINS A&OX4, MAKES NEEDS KNOWN AND IS COOPERATIVE W/CARE. PT DENIES PAIN OR SOB. SBP STABLE. HR 90S-100S. SINUS W/MULTIPLE PVCS, PROVIDER AWARE. PT REMAINS ASYMPTOMATIC. PT HAD BM THIS DAY SHIFT PER PRIOR RN. BT ACTIVE X4. RENEE WAS TAKEN OUT EARLY THIS MORNING, PT USING URINAL W/MIN ASSISTANCE. RN TO CONTINUE TO MONITOR.
--- NOTE | 2025-02-03 21:49 | NUR ---
PT UPDATE: REPORT GIVEN TO [facility] RNDAVID WHO WILL ASSUME CARE OF PT ONCE PT IS TRANSPORTED TO [facility] RM [id number]
--- NOTE | 2025-02-03 22:11 | NUR ---
PT UPDATE: PT TRANSFERRED TO MEDICAL FLOOR VIA WC BY THIS RN. PT ON TELE.
--- NOTE | 2025-02-03 23:36 | NUR ---
TRANSFER NOTE REPORT FROM DIRECTOR TRADING. PT ARRIVED TO ROOM 341 AT 2202. PT TRANSFERRED VIA GAIT BELT AND PIVOT TRANSFER TO BED. FULL SKIN ASSESSMENT DONE. NO SKIN CONCERNS. CONTINOUS PULSE OX APPLIED AND O2 SATS REMAIN WITHIN LOW 90'S ON RA. DENIES SOB AT REST. PT ORIENTED TO ROOM AND STAFF WITH CALL LIGHT WITHIN REACH AND BED IN LOWEST POSTION.
[2025-02-04 04:23] VITALS: BP 128/84
--- NOTE | 2025-02-04 04:52 | NUR ---
SHIFT SUMMARY PT ARRIVED FROM ICU TO ROOM 341. ADMITTED FOR ACUTE RESP FAILURE W/HYPOXIA/PNEUMONIA/TOXIC METABOLIC ENCEPHALOPATHY AND ACUTE ON CHRONIC CKD STAGE III. ON TELE SR @ 103. ON CONTINUOUS PULSE OX SATTING IN THE LOW 90'S. INCREASED SOB WITH EXCERTION BUT RECOVERS QUICKLY WITH REST. LUNGS SOUND COARSE. PT IS 1-2 PERSON ASSIST WITH GAIT BELT. A&OX3-4. ANTICIPATING D/C IN 24 HOURS POSSIBLY TO A SNF PER REPORT. LEFT AC IV LEAKING AND REMOVED. NEW IV INSERTED IN LEFT FOREARM.
[2025-02-04 07:29] LABS: Magnesium, Blood 2.6 mg/dL (1.6-2.4)
[2025-02-04] MEDS ORDERED: Insulin Human Lispro 100 Units/ML 3ML Syringe SC SCH (07:30)
[2025-02-04 07:41] LABS: Anion Gap 11.0 mmol/L (3-11); Blood Urea Nitrogen 47.0 mg/dL (8-24); CO2, Blood 21.0 mmol/L (21-32); Calcium, Blood 9.3 mg/dL (8.5-10.1); Chloride, Blood 104.0 mmol/L (98-108); Creatinine, Blood 1.16 mg/dL (0.60-1.20); Glucose, Blood 143.0 mg/dL (70-99); Potassium, Blood 4.2 mmol/L (3.5-5.5); Sodium, Blood 132.0 mmol/L (136-145)
[2025-02-04 07:51] VITALS: BP 118/85
[2025-02-04 11:03] VITALS: BP 115/69
[2025-02-04] MEDS ORDERED: FentaNYL Citrate 50 MCG/ML 2 ML Injection IV PRN (11:35)
[2025-02-04 16:02] VITALS: BP 130/94
[2025-02-04] MEDS ORDERED: NS 250 ML IV PRN (17:45)
--- NOTE | 2025-02-04 17:52 | NUR ---
SHIFT SUMMARY: PT A&O X4. COOPERATIVE WITH CARE. PT NEEDED ASSISTANCE WITH URINAL THIS SHIFT. ONE PERSON ASSIST c FWW TO BATHROOM. PT C/O ABDOMINAL PAIN AROUND UMBILICAL REGION. CT ABD ORDERED AND COMPLETED SHOWING SEVERE LEFT LOWER LOBE PNEUMONIA. IV ABX PROVIDED PER EMAR. PT ACCEPTED TO [facility]. PLAN TO D/C TOMORROW TO REHAB. TELE IN PLACE SHOWING SINUS RHYHTM c PVC'S WITH A HR IN THE 90'S. NO FURTHER C/O ABD PAIN SINCE CT.
[2025-02-04 19:46] VITALS: BP 121/63
[2025-02-05 00:37] VITALS: BP 142/111
[2025-02-05 05:17] VITALS: BP 116/59
[2025-02-05 05:39] LABS: Hematocrit 46.4 % (37.0-53.0); Hemoglobin 15.4 g/dL (13.5-17.5); Mean Corpuscular HGB Conc 33.2 g/dL (31.5-36.5); Mean Corpuscular Volume 83 fL (80-100); NRBC ABSOLUTE 0.00 K/mm3 (0.00-0.02); NRBC Auto 0.0 /100 WBC (0.0-0.2); Platelet Count 346 K/mm3 (150-400); RDW Coefficient Variation 13.7 % (11.7-14.2); RDW Standard Deviation 41.3 fL (35.1-46.3)
[2025-02-05 06:17] LABS: Albumin, Blood 2.5 g/dL (3.4-5.0); Anion Gap 11 mmol/L (3-11); Blood Urea Nitrogen 50 mg/dL (8-24); CO2, Blood 20 mmol/L (21-32); Calcium, Blood 9.1 mg/dL (8.5-10.1); Chloride, Blood 104 mmol/L (98-108); Creatinine, Blood 1.23 mg/dL (0.60-1.20); Glucose, Blood 131 mg/dL (70-99); Magnesium, Blood 2.7 mg/dL (1.6-2.4); Phosphorus, Blood 4.6 mg/dL (2.5-4.9); Potassium, Blood 4.3 mmol/L (3.5-5.5); Sodium, Blood 131 mmol/L (136-145)
--- NOTE | 2025-02-05 06:43 | NUR ---
SHIFT SUMMARY PT IN A PLEASANT MOOD. AT START OF SHIFT, WAS RECEIVING A BREATHING TX. PT ASKED FOR ANXIETY MEDICATION. MEDICATED PER EMAR. PT SLEEPING COMFORTABLY. PT WOKE AND ASKED TO BE MEDICATED FOR PAIN PER EMAR APPROX 0049. PT SLEPT PEACEFULLY AFTER MEDICATION ADMINISTRATION. HE HAS BEEN PLEASANT AND COOPERATIVE WITH CARE.
[2025-02-05 07:14] VITALS: BP 113/65
[2025-02-05] MEDS ORDERED: GABA100 PO (11:22)
[2025-02-05] MEDS ORDERED: METO25ER PO (11:23)
[2025-02-05] MEDS ORDERED: FURO20 PO (11:23)
[2025-02-05] MEDS ORDERED: ZIPR20 PO (11:23)
[2025-02-05] MEDS ORDERED: DOXY100 PO (11:23)
--- NOTE | 2025-02-05 14:20 | NUR ---
DISCHARGE SUMMARY CLIENT AOX3-4. MEDICATION COMPLIANT. SEEN BY PROVIDER AND DISCHARGE ORDERS TO [facility] RECEIVED. TRANSPORTATION ARRRAGENGED FOR 1230. IV AND TELE D/C'D. DISCHARGE PACKET AND CLIENT PROPERTY GIVEN TO CAPSULE MAKER FROM [facility]. CLIENT LEFT THE UNIT VIA WHEELCHAIR.
== END 2025-02-05 12:34 | DRG 871 ==
LOC: ER 11:57 → PCU 14:50 → MEDS 14:50 → ICUE 14:50 → ER 14:50 → PCU 20:49 → ICUE 22:00 → MEDS 02-03 22:09
PROVIDERS: Emergency Medicine; Internal Medicine; Nurse Practitioner Acute Care; Student in an Organized Health Care Education/Training Program; ADMIT Internal Medicine
PROC: 5A09457 Assistance with Respiratory Ventilation, 24-96 Consecutive Hours, Continuous Positive Airway Pressure (ICD-10-PCS; principal; 2025-01-30)
PROC: 3E03329 Introduction of Other Anti-infective into Peripheral Vein, Percutaneous Approach (ICD-10-PCS; 2025-01-30)
DX: A41.9 Sepsis, unspecified organism (principal); G92.8 Other toxic encephalopathy; J18.9 Pneumonia, unspecified organism; J96.01 Acute respiratory failure with hypoxia; N17.9 Acute kidney failure, unspecified; J44.0 Chronic obstructive pulmonary disease with (acute) lower respiratory infection; I50.20 Unspecified systolic (congestive) heart failure; E87.1 Hypo-osmolality and hyponatremia; J44.1 Chronic obstructive pulmonary disease with (acute) exacerbation; N18.30 Chronic kidney disease, stage 3 unspecified; E11.22 Type 2 diabetes mellitus with diabetic chronic kidney disease; E78.00 Pure hypercholesterolemia, unspecified; F17.210 Nicotine dependence, cigarettes, uncomplicated; R65.20 Severe sepsis without septic shock; Z88.8 Allergy status to other drugs, medicaments and biological substances; I25.2 Old myocardial infarction; Z79.82 Long term (current) use of aspirin; Z79.84 Long term (current) use of oral hypoglycemic drugs; Z79.899 Other long term (current) drug therapy; Z79.4 Long term (current) use of insulin; Z99.81 Dependence on supplemental oxygen
CPT/HCPCS: 36415; 36600; 51702; 51798; 70450; 71045; 74177; 76770; 80048; 80053; 80069; 80320; 81001; 82550; 82803; 82947; 83605; 83735; 83880; 84100; 84439; 84443; 84484; 85025; 85027; 85379; 87040; 93005; 93010; 94640; 94660; 94664; 94762; 97110; 97162; 97530; 99285-25; A9270; C8929; J0696; J1200; J1630; J1644; J1650; J1815; J1885; J1938; J2250; J2270; J2919; J3010; J3360; J7030; J7050; J7060; Q9957; Q9967